=== PATIENT | female | born 1990 | race Hispanic/Latino ===

== ENCOUNTER 2018-04-26 15:17 | Emergency (ER) | payer MEDICAID, OTHER | END 2018-04-26 16:18 | disposition home or self-care (01) | LOC: EDH 15:17 | DX: S63.622A Sprain of interphalangeal joint of left thumb, initial encounter (principal); W01.0XXA Fall on same level from slipping, tripping and stumbling without subsequent striking against object, initial encounter; Y93.89 Activity, other specified; Y92.098 Other place in other non-institutional residence as the place of occurrence of the external cause; Y99.8 Other external cause status | CPT/HCPCS: 73130 ==

== ENCOUNTER 2018-06-24 17:45 | Emergency (ER) | payer OTHER | END 2018-06-24 18:34 | disposition home or self-care (01) | LOC: EDH 17:45 | DX: B34.9 Viral infection, unspecified (principal); Z98.51 Tubal ligation status | CPT/HCPCS: 99281 ==